=== PATIENT | male | born 1960 | race Caucasian/White ===

== ENCOUNTER → 2017-05-11 | Outpatient (CLI) | payer BC ==
[~2017-05-11] MED LIST: IBUP-1484 PO; MORP-52 PO; NAPR220T77 PO; OXYC1TAB7 PO; OXYC5CAP2 PO; TRAM50TA2 PO
== END | disposition home or self-care (01) ==
LOC: CFH 08:04
PROVIDERS: ATTEND Internal Medicine
DX: K76.0 Fatty (change of) liver, not elsewhere classified (principal); E78.1 Pure hyperglyceridemia; E03.9 Hypothyroidism, unspecified; Z80.49 Family history of malignant neoplasm of other genital organs
CPT/HCPCS: 76700

== ENCOUNTER 2019-01-09 04:38 | Emergency (ER) | payer BC ==
[~2019-01-09] VITALS: Ht 167.6 cm; Wt 83.1 kg
[~2019-01-09 04:38] MED LIST changes: -IBUP-1484 PO; +IBUP-1902 PO
[2019-01-09] MEDS ORDERED: ONDANSETRON 2MG/ML, 2ML ONE (04:55)
[2019-01-09] MEDS ORDERED: HYDROmorphone 1 MG/ML, 1ML VIAL ONE (04:55)
[2019-01-09] MEDS ORDERED: ONDANSETRON 2MG/ML, 2ML IVPush ONE (05:00)
[2019-01-09] MEDS ORDERED: SODIUM CHLORIDE FLUSH 10ML SYR IVF ONE (05:00)
[2019-01-09] MEDS ORDERED: HYDROmorphone 2 MG/ML, 1ML IVPush PRN (05:00)
--- NOTE | 2019-01-09 05:01 | NUR ---
RECORDS REQUEST FAXED TO [facility]
[2019-01-09 05:11] LABS: MICROSCOPIC AUTO
[2019-01-09 05:16] LABS: CULTURE INDICATED? YES
--- NOTE | 2019-01-09 05:22 | NUR ---
LAB AT BEDSIDE
--- NOTE | 2019-01-09 05:23 | NUR ---
58Y M COMES IN W/ C/O OFF AND ON RIGHT FLANK PAIN RADIATING THROUGH LOWER QUADS. DENIES GANESH BLOOD IN URINE. PT HX OF KIDNEY STONES. PT CONNECTED TO MONITORING CALL LIGHT WITHIN REACH KAREN TUBBS
[2019-01-09 05:32] LABS: BASOPHILS # (AUTO) 0.06 x10^3/uL (0-0.1); BASOPHILS % (AUTO) 1 % (0-1); EOSINOPHILS % (AUTO) 3 % (1-7); LYMPHOCYTES # (AUTO) 1.81 x10^3/uL (1-3.4); LYMPHOCYTES % (AUTO) 20 % (22-44); MD NO; MEAN CORPUSCULAR HGB CONC 33.7 g/dL (33.2-36.2); MEAN CORPUSCULAR VOLUME 95.2 fL (81-97); MEAN PLATELET VOLUME 7.4 fL (7.4-10.4); MONOCYTES # (AUTO) 0.52 x10^3/uL (0.2-0.8); MONOCYTES % (AUTO) 6 % (2-9); NEUTROPHILS # (AUTO) 6.54 x10^3/uL (1.8-6.8); NEUTROPHILS % (AUTO) 71 % (42-75); PLATELET COUNT 250 x10^3/uL (130-400); RED BLOOD COUNT 4.72 x10^6/uL (4.38-5.82); RED CELL DISTRIBUTION WIDTH 12.6 % (9.4-14.8)
[2019-01-09 05:45] LABS: ALANINE AMINOTRANSFERASE 35 U/L (12-78); ALBUMIN 4.1 g/dL (3.4-5.0); ANION GAP 4 mmol/L (5-15); CALCIUM 9.9 mg/dL (8.5-10.1); CHLORIDE 110 mmol/L (98-107); CREATININE 0.98 mg/dL (0.7-1.3)
[2019-01-09 05:47] LABS: ALKALINE PHOSPHATASE 53 U/L (45-117); BILIRUBIN,TOTAL 1.1 mg/dL (0.2-1.0)
[2019-01-09] MEDS ORDERED: KETOROLAC 30 MG/1 ML ONE (06:09)
[2019-01-09 06:12] VITALS: BP 144/83
[2019-01-09] MEDS ORDERED: KETOROLAC 30 MG/1 ML IVPush ONE (06:30)
== END 2019-01-09 06:58 | disposition home or self-care (01) ==
LOC: ED 06:56
DX: N13.2 Hydronephrosis with renal and ureteral calculous obstruction (principal); R31.9 Hematuria, unspecified; E78.5 Hyperlipidemia, unspecified
CPT/HCPCS: 36415; 74176; 80053; 81001; 83690; 85025; 87086; 96374; 96375; 99284; J1170; J1885; J2405

== ENCOUNTER 2019-01-20 19:46 | Emergency (ER) | payer BC ==
[~2019-01-20] VITALS: Ht 167.6 cm; Wt 84.0 kg
--- NOTE | 2019-01-20 20:05 | NUR ---
patient into room, changed into hospital gown. RN to bedside, completed clinical screen. Patient's symptoms consistent with kidney stone, patient reports having a history of kidney stones and the discomfort/pain feeling similar to previous diagnosed kidney stones. Informed of likely urinalysis, patient agreeable. Reviewed clean catch instructions. Patient verbalized understanding, awaiting assessment and provider orders.
[2019-01-20] MEDS ORDERED: HYDROmorphone 1 MG/ML, 1ML VIAL IVPush PRN (20:30)
[2019-01-20 20:33] LABS: BASOPHILS # (AUTO) 0.05 x10^3/uL (0-0.1); BASOPHILS % (AUTO) 1 % (0-1); EOSINOPHILS # (AUTO) 0.28 x10^3/uL (0-0.4); EOSINOPHILS % (AUTO) 3 % (1-7); LYMPHOCYTES # (AUTO) 1.84 x10^3/uL (1-3.4); LYMPHOCYTES % (AUTO) 17 % (22-44); MD NO; MEAN CORPUSCULAR HEMOGLOBIN 31.7 pg (27.5-34.5); MEAN CORPUSCULAR HGB CONC 33.7 g/dL (33.2-36.2); MEAN CORPUSCULAR VOLUME 94.1 fL (81-97); MEAN PLATELET VOLUME 7.2 fL (7.4-10.4); MONOCYTES # (AUTO) 0.78 x10^3/uL (0.2-0.8); MONOCYTES % (AUTO) 7 % (2-9); NEUTROPHILS # (AUTO) 7.88 x10^3/uL (1.8-6.8); NEUTROPHILS % (AUTO) 73 % (42-75); PLATELET COUNT 215 x10^3/uL (130-400); RED CELL DISTRIBUTION WIDTH 12.4 % (9.4-14.8)
[2019-01-20] MEDS ORDERED: KETOROLAC 30 MG/1 ML ONE (20:34)
[2019-01-20] MEDS ORDERED: HYDROmorphone 1 MG/ML, 1ML VIAL ONE (20:36)
[2019-01-20] MEDS ORDERED: ONDANSETRON 2MG/ML, 2ML ONE (20:36)
[2019-01-20 20:44] LABS: ALANINE AMINOTRANSFERASE 31 U/L (12-78); ANION GAP 4 mmol/L (5-15); CALCIUM 9.5 mg/dL (8.5-10.1); CHLORIDE 106 mmol/L (98-107); CREATININE 1.18 mg/dL (0.7-1.3)
[2019-01-20 20:46] LABS: ALKALINE PHOSPHATASE 56 U/L (45-117); BILIRUBIN,TOTAL 1.9 mg/dL (0.2-1.0); TOTAL PROTEIN 6.9 g/dL (6.4-8.2)
--- NOTE | 2019-01-20 20:50 | NUR ---
Emergency department blood bank technician to patient's bedside to start a peripheral intravenous access. Started per protocol. Patient now out of room for ultrasound. Will return to bedside to medicate on patient's return.
[2019-01-20] MEDS ORDERED: KETOROLAC 30 MG/1 ML IVPush ONE (21:00)
[2019-01-20] MEDS ORDERED: ONDANSETRON 2MG/ML, 2ML IVPush ONE (21:00)
[2019-01-20 21:16] LABS: MICROSCOPIC AUTO
[2019-01-20 21:17] LABS: CULTURE INDICATED? YES
--- NOTE | 2019-01-20 21:24 | NUR ---
Patient back from ultrasound, RN to bedside, declining hydromorphone. Administered Torodol (see eMAR) and sent urine to lab. Awaiting urine results.
[2019-01-20 21:39] VITALS: BP 132/85
[2019-01-22] MEDS ORDERED: STATIN (18:07)
[2019-01-22] MEDS ORDERED: percocet (18:07)
[2019-01-22] MEDS ORDERED: zofran (18:07)
== END 2019-01-20 22:10 | disposition home or self-care (01) ==
LOC: ED 20:27
DX: N13.2 Hydronephrosis with renal and ureteral calculous obstruction (principal); E78.5 Hyperlipidemia, unspecified
CPT/HCPCS: 36415; 76770; 80053; 81001; 85025; 87086; 96374; 99284; J1885